=== PATIENT | female | born 1980 | race Caucasian/White ===

== ENCOUNTER 2018-04-23 15:24 | Emergency (ER) | payer OTHER ==
[2018-04-23] MEDS: predniSONE 20 MG TAB PO (15:52)
[2018-04-23] MEDS: IPRATROPIUM (NEB) 0.5 MG/2.5 ML AMP NEB (16:07)
[2018-04-23] MEDS: ALBUTEROL 0.083% (NEB) 2.5 MG/3 ML AMP NEB (16:07)
== END 2018-04-23 17:02 | disposition home or self-care (01) ==
LOC: FTE 15:24
DX: J45.901 Unspecified asthma with (acute) exacerbation (principal)
CPT/HCPCS: 94664; 99283-25

== ENCOUNTER 2018-06-05 23:12 | Emergency (ER) | payer OTHER ==
[2018-06-05] MEDS: IPRATROPIUM (NEB) 0.5 MG/2.5 ML AMP HHN (23:31)
[2018-06-05] MEDS: ALBUTEROL 0.083% (NEB) 2.5 MG/3 ML AMP HHN (23:31)
[2018-06-05] MEDS: DEXAMETHASONE 10 MG/ML 1 ML INJ IM (23:55)
== END 2018-06-06 00:59 | disposition home or self-care (01) ==
LOC: FTE 06-06 00:59
DX: J45.901 Unspecified asthma with (acute) exacerbation (principal); R40.2412 Glasgow coma scale score 13-15, at arrival to emergency department
CPT/HCPCS: 94664; 96372; 99284-25

== ENCOUNTER 2018-09-18 08:11 | Emergency (ER) | payer OTHER ==
[2018-09-18] MEDS: DEXAMETHASONE 10 MG/ML 1 ML INJ PO (08:44)
[2018-09-18] MEDS: IPRATROPIUM (NEB) 0.5 MG/2.5 ML AMP NEB (09:29)
[2018-09-18] MEDS: ALBUTEROL 0.083% (NEB) 2.5 MG/3 ML AMP NEB (09:29)
== END 2018-09-18 09:49 | disposition home or self-care (01) ==
LOC: FTE 08:11
DX: J45.901 Unspecified asthma with (acute) exacerbation (principal)
CPT/HCPCS: 94664; 99283-25